=== PATIENT | female | born 1970 | race Caucasian/White ===

== ENCOUNTER 2016-11-13 15:36 | Emergency (ER) | payer MEDICAID ==
[~2016-11-13] VITALS: Ht 162.6 cm; Wt 90.0 kg
[~2016-11-13 15:36] MED LIST: ASPI1TAB30 PO; CYCL-319 PO; FIORICET PO; HYDR-3498 PO; HYDR-906 PO; NAPR-260 PO; NORT10CA2 PO; ONDA-43 PO
[2016-11-13 15:39] VITALS: Ht 162.6 cm; Wt 90.0 kg
[2016-11-13] MEDS ORDERED: KETOROLAC 30 MG INJ IM STA (16:49)
--- NOTE | 2016-11-13 17:18 | ERD ---
ER Documentation Chief Complaint Date/Time DATE: 11/13/16 TIME: 17:13 Chief Complaint RIGHT LOWER LEG PAIN NO RECENT INJURY. HPI Patient is a 45-year-old female who reports right knee pain for the last 3 years. She states it is from a fall injury 3 years ago at work. She states she has never seen anybody for this knee pain. She says it hurts when she walks on it but it is particularly painful when she drives and has to press the gas pedal. She denies any recurrent injury over the last 3 years. She denies any swelling or erythema. She denies any calf pain or rashes, bruising, or bleeding. She denies any other symptoms such as chest pain, shortness of breath , coughing, or congestion. She says that Tylenol and Motrin was helping although for some reason it has become more painful in the last week. She thinks that maybe it is because she has started in a new job which requires her to be on her feet into drive. The remainder of the systems are negative. ROS All systems reviewed and are negative except as per history of present illness. Medications Home Meds Active Scripts Hydrocodone/Acetaminophen ([place] 5-325 Tablet) 1 Each Tablet, 1 TAB PO Q6H Y for PAIN, #20 TAB Prov:INGA CARRASQUILLO PA-C 06/12/16 Aspirin/Acetaminophen/Caffeine (Excedrin Migraine Caplet) 1 Each Tablet, 1 EACH PO Q8, #30 TAB Prov:INGA CARRASQUILLO PA-C 06/12/16 Cyclobenzaprine Hcl* (Cyclobenzaprine Hcl*) 10 Mg Tablet, 10 MG PO TID, #15 TAB Prov:CHRISTIANO CODY PA-C 02/07/16 Naproxen* (Naprosyn*) 500 Mg Tablet, 500 MG PO BID Y for PAIN AND/OR INFLAMMATION, #30 TAB Prov:CHRISTIANO CODY PA-C 02/07/16 Hydrocodone Bit-Acetaminophen* ([place]*) 5-325 Mg Tab, 1 TAB PO Q6 Y for PAIN, # 7 TAB Prov:CHRISTIANO CDOY PA-C 02/07/16 Hydrocodone Bit-Acetaminophen* ([place]*) 5-325 Mg Tab, 1 TAB PO Q6 Y for PAIN, # 7 TAB Prov:ALISIA ESPINO PA-C 01/01/16 Ondansetron Hcl* (Zofran*) 4 Mg Tab, 4 MG PO Q4H Y for NAUSEA AND OR VOMITING, # 30 TAB Prov:ELLIOT HOOK 09/24/15 Acetamin/Butalbital/Caffeine* (Fioricet*) 1 Tab Tab, 1 TAB PO Q4H Y for PAIN LEVEL 1-5, #30 TAB Prov:ELLIOT HOOK 09/24/15 Nortriptyline Hcl* (Nortriptyline Hcl*) 10 Mg Capsule, 10 MG PO BID for 30 Days , CAP Prov:ELLIOT HOOK 09/24/15 Allergies Allergies: Coded Allergies: No Known Allergy (Unverified , 05/30/15) PMhx/Soc History of Surgery: Yes (CEASAREAN SECTION (2)) Anesthesia Reaction: No Hx Neurological Disorder: Yes (YEH, BRAIN LESION) Hx Respiratory Disorders: No Hx Cardiac Disorders: No Hx Psychiatric Problems: Yes (ANXIETY) Hx Miscellaneous Medical Probl: Yes (herniated discs in neck and back) Hx Alcohol Use: No Hx Substance Use: No Hx Tobacco Use: No Smoking Status: Never smoker Physical Exam Vitals Vital Signs Date Time Temp Pulse Resp B/P Pulse Ox O2 Delivery O2 Flow Rate FiO2 11/13/16 15:39 98.6 80 20 183/85 100 Physical Exam Const: [] Well-developed well-nourished female sitting in a wheelchair in no acute distress Head: Atraumatic normocephalic Resp: Clear to auscultation bilaterally Cardio: Regular rate and rhythm, no murmurs Abd: Soft, non tender, non distended. Normal bowel sounds Skin: No petechiae or rashes Ext: No cyanosis, or edema, tenderness to palpation of her entire right knee , no effusion noted, no bruising, no deformity, no laxity of the joint Neur: Awake and alert, oriented 3 with a GCS of 15 Psych: Normal Mood and Affect Results 24 hrs Current Medications Medications (Trade) Dose Ordered Sig/Tyrone Route PRN Reason Start Time Stop Time Status Last Admin Dose Admin Ketorolac Tromethamine (Toradol) 30 mg ONCE STAT IM 11/13/16 16:49 11/13/16 16:51 DC 11/13/16 17:32 Procedures/MDM Differential includes but is not limited to chronic knee pain, ligamentous injury, arthritis of the knee X-ray of the knee does not reveal any acute fracture or dislocation 1743: Patient stable for discharge home. She has been advised that with chronic knee pain for 3 years she needs to see an orthopedic doctor and probably get an outpatient MRI for probable ligamentous injury. Departure Diagnosis: Primary Impression: Right knee pain Chronicity: chronic Qualified Code: M25.561 - Chronic pain of right knee Condition: Good Patient Instructions: Knee Immobilizer, Knee Pain, Meniscus Injury (Possible) [facility]errals: [facility] Additional Instructions: Wear the knee immobilizer for comfort and bear weight as tolerated. It is important that you see the orthopedic doctor for further evaluation of your chronic knee pain. Return to the emergency department for any new or worsening symptoms. OUMOU WALLACE Nov 13, 2016 17:18
--- NOTE | 2016-11-13 17:30 | RADRPT ---
PROCEDURE: XR Knee. CLINICAL INDICATION: Pain TECHNIQUE: AP, lateral and oblique view of the right knee were obtained. The images reviewed on a PACS workstation. COMPARISON: None. FINDINGS: Three views of the right knee demonstrate no displaced fracture. No gross malalignment is seen. Th ere is no significant degenerate change. No patellofemoral disease is identified. Small joint effusi on is seen.. The bones normally mineralized. The soft tissues are unremarkable. IMPRESSION: No acute fracture dislocation RPTAT: HH .Bean Chahal MD, MD Date Time Electronically viewed and signed by .Bean Chahal MD, on 11/13/2016 17:30 .W/
[2016-11-13] MEDS ORDERED: HYDR-906 PO (17:49)
[2016-11-13] MEDS ORDERED: ETOD300C26 PO (17:49)
[2016-11-13] MEDS ORDERED: TRAM50TA2 PO (17:50)
== END 2016-11-13 18:07 | disposition home or self-care (01) ==
LOC: FTE 15:36
DX: M25.561 Pain in right knee (principal); Z79.82 Long term (current) use of aspirin
CPT/HCPCS: 29505; 73562; 96372; J1885; Z7502

== ENCOUNTER 2016-12-29 22:50 | Observation (INO) | payer MEDICAID ==
[~2016-12-29] VITALS: Ht 154.9 cm; Wt 96.4 kg
[~2016-12-29 22:50] MED LIST changes: +ETOD300C26 PO; +TRAM50TA2 PO
[2016-12-30 00:03] LABS: URINE BLOOD (Dip) POC Negative (NEGATIVE)
[2016-12-30] MEDS ORDERED: morphine 4 MG/ML VIAL IV STA (00:38)
[2016-12-30] MEDS ORDERED: ONDANSETRON 4 MG INJ IV STA (00:38)
[2016-12-30] MEDS ORDERED: SOD CHLORIDE 0.9% 1,000 ML IV STA (00:38)
[2016-12-30 01:14] LABS: ADD SCAN DIFF NO
[2016-12-30 01:17] LABS: BASOPHILS % 0.4 % (0.0-2.0); EOSINOPHILS # 0.1 10^3/ul (0.0-0.5); EOSINOPHILS % 1.3 % (0.0-7.0); HEMATOCRIT 37.5 % (37.0-47.0); HEMOGLOBIN 12.5 g/dl (12.0-16.0); LYMPHOCYTES # 2.8 10^3/ul (0.8-2.9); LYMPHOCYTES % 27.4 % (15.0-51.0); MEAN CORPUSCULAR HEMOGLOBIN 28.5 pg (29.0-33.0); MEAN CORPUSCULAR HGB CONC 33.3 g/dl (32.0-37.0); MEAN CORPUSCULAR VOLUME 85.4 fl (82.0-101.0); MONOCYTE # 0.8 10^3/ul (0.3-0.9); MONOCYTES % 7.6 % (0.0-11.0); NEUTROPHIL # 6.3 10^3/ul (1.6-7.5); NEUTROPHILS % 62.8 % (39.0-77.0); PLATELET COUNT 362 10^3/UL (140-415); RED BLOOD COUNT 4.39 10^6/ul (4.20-5.40); RED CELL DISTRIBUTION WIDTH 12.7 % (11.5-14.5)
[2016-12-30 01:31] LABS: ALBUMIN 3.9 g/dl (3.3-4.9); POTASSIUM 3.9 mmol/L (3.5-5.1)
[2016-12-30 01:33] LABS: CREATININE 0.73 mg/dl (0.44-1.00)
[2016-12-30 01:34] LABS: ALBUMIN/GLOBULIN RATIO 0.92; BILIRUBIN,INDIRECT 0.1 mg/dl (0-1.1); BILIRUBIN,TOTAL 0.1 mg/dl (0.2-1.3); CALCIUM 9.1 mg/dl (8.4-10.2); TOTAL PROTEIN 8.1 g/dl (6.1-8.1)
[2016-12-30 01:39] LABS: ADD UMIC YES; URINE BILIRUBIN (Dip) NEGATIVE (NEGATIVE); URINE BLOOD (Dip) NEGATIVE (NEGATIVE); URINE COLOR LT. YELLOW (YELLOW); URINE GLUCOSE (Dip) NEGATIVE (NEGATIVE); URINE KETONES (Dip) NEGATIVE (NEGATIVE); URINE LEUKOCYTE ESTERASE (Dip) TRACE (NEGATIVE); URINE NITRITE (Dip) NEGATIVE (NEGATIVE); URINE TOTAL PROTEIN (Dip) NEGATIVE (NEGATIVE); URINE UROBILINOGEN (Dip) 0.2 E.U./dL (0.1-1.0)
[2016-12-30 02:01] LABS: BACTERIA,URINE FEW; SQUAMOUS EPITHELIAL CELL,UR FEW; URINE RBCS 0-2 /HPF (0)
[2016-12-30] MEDS ORDERED: HYDROmorphONE 1 MG/ML SYG IV STA ×2 (02:03→05:25)
[2016-12-30] MEDS ORDERED: IBUPROFEN 200 MG TAB PO ONE (02:30)
--- NOTE | 2016-12-30 03:10 | RADRPT ---
PROCEDURE: CT ABDOMEN/PELVIS WITHOUT CONTRAST CLINICAL INDICATION: 46-year-old female with abdominal pain. TECHNIQUE: The study was performed utilizing a GE [employer] VCT 64-slice CT scanner. Direct axia l sections were obtained through the abdomen and pelvis without the use of intravenous contrast mate rial. Sagittal and coronal reformations were obtained. One or more of the following dose reduction t echniques were utilized: automated exposure control, adjustment of the mA and/or kV according to pat ient's size or use of iterative reconstruction technique. The images were reviewed on a PACS workst [employer]. CTD/vol = 23.3 mGy; Total Exam DLP = 1314.4 mGy-cm. COMPARISON: None. FINDINGS: There is small partially visualized calcification within the right infrahilar region presumably from prior granulomatous disease. There is trace bibasilar subsegmental atelectasis. There is no evide nce for significant pleural effusion. The liver has a normal size and contour without focal areas o f abnormal density. No intrahepatic nor extrahepatic biliary ductal dilatation is seen. The gallblad devendra demonstrates no wall thickening nor pericholecystic fluid. No biliary stones are evident. The pa ncreas is without areas of abnormal attenuation. The spleen is identified and has a normal size wit hout abnormal density. The adrenal glands are unremarkable. 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 There is compensatory hypertrophy of the right kidney. There are punctate nonobstructing mid right renal calculi. There is no evidence for hydroureteronephrosis. No hydroureteronephrosis nor nephroureterolithiasis is evident. The urinary bladder contains urine. There is a tiny umbilical hernia with an opening of 6 x 6 mm containing fat. There is mild retained stool most prominently within the ascending and transverse colon without obstruction. The appendix is visualized and is without abnormal thickening or surrounding inflammatory reaction. The uterus is anteflexed. There is no significant pelvic free fluid. The aortoiliac vessels are without aneurys mal dilatation. Mild degenerative changes are seen within the spine. IMPRESSION: 1. 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 2. Punctate nonobstructing mid right renal calculi. 3. Mild retained stool without obstruction. 4. No CT evidence for appendicitis. 5. Mild degenerative changes within the spine. .Alberto Guerra MD, MD Date Time Electronically viewed and signed by .Alberto Guerra MD, MD on 12/30/2016 03:09 .Frank
[2016-12-30] MEDS ORDERED: DICLOFENAC SODIUM 37.5 MG/ML VIAL IV STA (03:23)
[2016-12-30] MEDS ORDERED: DIAZEPAM 5 MG/ML SYG IV ONE (03:30)
[2016-12-30 05:00] VITALS: TEMP 98.2
--- NOTE | 2016-12-30 06:24 | ERA ---
ER Documentation Chief Complaint Date/Time DATE: 12/30/16 TIME: 06:17 Chief Complaint Flank pain, Back and neck pain. n/v and feels weak HPI This 46-year-old female presents to the ER with nausea vomiting pain, epigastric abdominal pain as well as headache and lower back pain. The headache is left-sided and is throbbing. He came on gradually has been present for 3 days. She also has generalized weakness. Denies any fever or chills. Denies pain on neck flexion. States that she has felt this way before when she was admitted to the hospital for spots on her brain. She is not sure what the spots were what was found. Reviewed the patient's EMR and see if she is admitted for similar symptoms and multiple lesions that were found on MRI. Oncologic workup was recommended the patient was discharged after headache dissipated. ROS All systems reviewed and are negative except as per history of present illness. Medications Home Meds Active Scripts Tramadol HCl (Tramadol HCl) 50 Mg Tablet, 50 MG PO Q6, #20 TAB 0 Refills Prov:OUMOU WALLACE 11/13/16 Etodolac (Etodolac) 300 Mg Capsule, 300 MG PO Q8 Y for PAIN, #30 CAP 0 Refills Prov:OUMOU WALLACE 11/13/16 Hydrocodone/Acetaminophen ([place] 5-325 Tablet) 1 Each Tablet, 1 TAB PO Q6H Y for PAIN, #20 TAB Prov:INGA CARRASQUILLO PA-C 06/12/16 Aspirin/Acetaminophen/Caffeine (Excedrin Migraine Caplet) 1 Each Tablet, 1 EACH PO Q8, #30 TAB Prov:INGA CARRASQUILLO PA-C 06/12/16 Cyclobenzaprine Hcl* (Cyclobenzaprine Hcl*) 10 Mg Tablet, 10 MG PO TID, #15 TAB Prov:CHRISTIANO CODY PA-C 02/07/16 Naproxen* (Naprosyn*) 500 Mg Tablet, 500 MG PO BID Y for PAIN AND/OR INFLAMMATION, #30 TAB Prov:CHRISTIANO CODY PA-C 02/07/16 Hydrocodone Bit-Acetaminophen* ([place]*) 5-325 Mg Tab, 1 TAB PO Q6 Y for PAIN, # 7 TAB Prov:CHRISTIANO CODY PA-C 02/07/16 Hydrocodone Bit-Acetaminophen* ([place]*) 5-325 Mg Tab, 1 TAB PO Q6 Y for PAIN, # 7 TAB Prov:ALISIA ESPINO PA-C 01/01/16 Ondansetron Hcl* (Zofran*) 4 Mg Tab, 4 MG PO Q4H Y for NAUSEA AND OR VOMITING, # 30 TAB Prov:REGELLIOT MEDELLIN 16 Acetamin/Butalbital/Caffeine* (Fioricet*) 1 Tab Tab, 1 TAB PO Q4H Y for PAIN LEVEL 1-5, #30 TAB Prov:REGVERENARELLIOT 16 Nortriptyline Hcl* (Nortriptyline Hcl*) 10 Mg Capsule, 10 MG PO BID for 30 Days , CAP Prov:REGELLIOT MEDELLIN 09/24/15 Allergies Allergies: Coded Allergies: No Known Allergy (Unverified , 05/30/15) PMhx/Soc History of Surgery: Yes (CEASAREAN SECTION (2)) Anesthesia Reaction: No Hx Neurological Disorder: Yes (YEH, BRAIN LESION) Hx Respiratory Disorders: No Hx Cardiac Disorders: No Hx Psychiatric Problems: Yes (ANXIETY) Hx Miscellaneous Medical Probl: Yes (herniated discs in neck and back) Hx Alcohol Use: No Hx Substance Use: No Hx Tobacco Use: No Smoking Status: Never smoker Physical Exam Vitals Vital Signs Date Time Temp Pulse Resp B/P Pulse Ox O2 Delivery O2 Flow Rate FiO2 12/30/16 05:00 98.2 65 16 140/84 100 Room Air 12/30/16 03:30 98.2 78 16 131/80 100 Room Air 12/30/16 02:10 71 17 121/62 98 Room Air 12/30/16 00:21 83 17 140/81 100 Room Air 12/29/16 23:18 97.7 89 20 142/83 96 Physical Exam Const: [] Head: Atraumatic Eyes: Normal Conjunctiva ENT: Normal External Ears, Nose and Mouth. Neck: Full range of motion..~ No meningismus. Resp: Clear to auscultation bilaterally Cardio: Regular rate and rhythm, no murmurs Abd: Soft, non tender, non distended. Normal bowel sounds Skin: No petechiae or rashes Back: No midline or flank tenderness Ext: No cyanosis, or edema Neur: Awake and alert Psych: Normal Mood and Affect Result Diagram: 12/30/16 0057 12/30/16 0057 Results 24 hrs Laboratory Tests Test 12/30/16 00:04 12/30/16 00:57 Bedside Urine pH (LAB) 6.5 Bedside Urine Protein (LAB) Negative Bedside Urine Glucose (UA) Negative Bedside Urine Ketones (LAB) Negative Bedside Urine Blood Negative Bedside Urine Nitrite (LAB) Negative Bedside Urine Leukocyte Esterase (L Trace White Blood Count 10.010^3/ul Red Blood Count 4.3910^6/ul Hemoglobin 12.5g/dl Hematocrit 37.5% Mean Corpuscular Volume 85.4fl Mean Corpuscular Hemoglobin 28.5pg Mean Corpuscular Hemoglobin Concent 33.3g/dl Red Cell Distribution Width 12.7% Platelet Count 09095^3/UL Mean Platelet Volume 10.0fl Neutrophils % 62.8% Lymphocytes % 27.4% Monocytes % 7.6% Eosinophils % 1.3% Basophils % 0.4% Nucleated Red Blood Cells % 0.0/100WBC Neutrophils # 6.310^3/ul Lymphocytes # 2.810^3/ul Monocytes # 0.810^3/ul Eosinophils # 0.110^3/ul Basophils # 0.010^3/ul Nucleated Red Blood Cells # 0.010^3/ul Urine Color LT. YELLOW Urine Clarity CLEAR Urine pH 6.0 Urine Specific Britton 1.015 Urine Ketones NEGATIVE Urine Nitrite NEGATIVE Urine Bilirubin NEGATIVE Urine Urobilinogen 0.2 E.U./dL Urine Leukocyte Esterase TRACE Urine Microscopic RBC 0-2/HPF Urine Microscopic WBC 0-2/HPF Urine Squamous Epithelial Cells FEW Urine Bacteria FEW Urine Hemoglobin NEGATIVE Urine Glucose NEGATIVE% Urine Total Protein NEGATIVE Sodium Level 142mmol/L Potassium Level 3.9mmol/L Chloride Level 104mmol/L Carbon Dioxide Level 28mmol/L Anion Gap 14 Blood Urea Nitrogen 13mg/dl Creatinine 0.73mg/dl Glucose Level 139mg/dl Calcium Level 9.1mg/dl Total Bilirubin 0.1mg/dl Direct Bilirubin 0.00mg/dl Indirect Bilirubin 0.1mg/dl Aspartate Amino Transf (AST/SGOT) 24IU/L Alanine Aminotransferase (ALT/SGPT) 28IU/L Alkaline Phosphatase 132IU/L Total Protein 8.1g/dl Albumin 3.9g/dl Globulin 4.20g/dl Albumin/Globulin Ratio 0.92 Lipase 82U/L Current Medications Medications (Trade) Dose Ordered Sig/Tyrone Route PRN Reason Start Time Stop Time Status Last Admin Dose Admin Sodium Chloride (NS) 1,000 ml @ 1,000 mls/hr Q1H STAT IV 12/30/16 00:38 12/30/16 01:37 DC 12/30/16 00:51 Morphine Sulfate (morphine) 4 mg ONCE STAT IV 12/30/16 00:38 12/30/16 00:40 DC 12/30/16 00:51 Ondansetron HCl (Zofran Inj) 4 mg ONCE STAT IV 12/30/16 00:38 12/30/16 00:40 DC 12/30/16 00:51 Hydromorphone HCl (Dilaudid) 0.5 mg ONCE STAT IV 12/30/16 02:03 12/30/16 02:04 DC 12/30/16 02:15 Ibuprofen (Motrin) 400 mg ONCE ONCE PO 12/30/16 02:30 12/30/16 02:31 DC 12/30/16 02:15 Diclofenac Sodium (Dyloject) 37.5 mg ONCE STAT IV 12/30/16 03:23 12/30/16 03:24 DC 12/30/16 03:30 Diazepam (Valium) 5 mg ONCE ONCE IV 12/30/16 03:30 12/30/16 03:31 DC 12/30/16 03:30 Hydromorphone HCl (Dilaudid) 1 mg ONCE STAT IV 12/30/16 05:25 12/30/16 05:27 DC 12/30/16 05:38 Procedures/MDM Headache with multiple brain lesions. Patient's abdominal pain may be secondary to constipation. However her headache was intractable. I have very low suspicion for meningitis as the patient is afebrile does not have meningismus, fever or elevated white count and had similar presentation with positive multiple brain lesions in the past. Also have low suspicion for subarachnoid hemorrhage as the headache is been coming on gradually getting worse and she has no history of recent trauma. She was hydrated with normal saline and her nausea was easily resolved with Zofran. However after multiple doses of pain medication including morphine, dilated jacked, Dilaudid patient still stated that she had almost the same headache. This point I see no other choice than to admit her for neurological workup to reevaluate her brain lesions and see if there causing any serious process. Vital signs are stable currently. Communicated with Dr. Spencer who will be admitting the patient to the medical surgical floor. CT abdomen pelvis interpretation: Atrophic kidney, constipation, no obstruction , no free air, no fat stranding, no fractures CT head interpretation: See hypointense lesion in the left temporal lobe without mass-effect, hemorrhage, midline shift. No fractures. Radiology read is still pending and will be followed by oncoming physician. Departure Diagnosis: Primary Impression: Intractable headache Additional Impressions: Nausea and vomiting Acute abdominal pain Condition: Stable CLYDE GARCIA DO December 30, 2016 06:24
--- NOTE | 2016-12-30 07:13 | RADRPT ---
PROCEDURE: CT BRAIN WITHOUT CONTRAST CLINICAL INDICATION: 46-year-old female with headaches and history of trauma. TECHNIQUE: The study was performed utilizing a [employer] VCT 64-slice CT scanner. Direct axia l sections were obtained from the foramen magnum to the vertex without the use of intravenous contra st material. Sagittal and coronal reformations were obtained. One or more the following dose reduct ion techniques were utilized: automated exposure control, adjustment of the mA and/or kV according t o patient's size or use of iterative reconstruction technique. The images were viewed on a PACS [employer]. CTD/vol = 42.8 mGy; Total Exam DLP = 720.2 mGy-cm. COMPARISON: CT brain June 12, 2016; CT brain January 01, 2016; CT brain September 23, 2015; MRI brain May 26, 2015. FINDINGS: There is a small focal calcific density within the left inferior frontal region on axial image 2-9 m easuring approximately 2 mm. There is a subtle ovoid calcific density measuring 3 mm within the rig ht superior frontal cortical region on axial image 2-24. There is a small focal calcific density wit hin the left anterior fornix region on axial image 2-15 measuring 2 mm. There is an additional ovoi d focus of calcific density within the left insular region on axial image 2-15 measuring 2 mm. Ther e is a subtle focus of calcific density within the left parietal parasagittal region on the axial im age seen better on sagittal image 602-49. The ventricles have a normal size, shape and position. T here is no evidence for mass effect or midline shift. There is no evidence for acute intra or extra- axial blood. The bony calvarium is intact. The partially visualized paranasal sinuses and mastoid a ir cells are without significant abnormal soft tissue. IMPRESSION: 1. There has been no marked interval change compared to the patient's prior CT scans. 2. Multiple small subtle calcific foci within the left inferior frontal, right superior frontal, le ft anterior fornix, left insular region and left parietal parasagittal locations most likely from pr ior cysticercosis infection. .Alberto Guerra MD, MD Date Time Electronically viewed and signed by .Alberto Guerra MD, on 12/30/2016 07:12 .M/
[2016-12-30] MEDS ORDERED: ACETAMINOPHEN 325 MG TAB PO PRN ×3 (08:00→12:30)
[2016-12-30] MEDS ORDERED: ACET/BUTAL/CAFF TAB PO PRN (08:00)
[2016-12-30] MEDS ORDERED: morphine 2 MG INJ IV PRN ×2 (08:00→12:30)
[2016-12-30] MEDS ORDERED: ONDANSETRON 4 MG INJ IV PRN ×3 (08:00→12:30)
[2016-12-30] MEDS ORDERED: NACL 0.9% 3 ML SYG IV SCH ×2 (08:00→12:30)
[2016-12-30] MEDS ORDERED: ALBUTEROL/IPRATROPIUM (NEB) 3 ML AMP HHN PRN ×2 (08:00→12:30)
[2016-12-30 10:00] VITALS: BP 141/70; PULSE 81; RESP 18; Ht 154.9 cm; Wt 96.4 kg
[2016-12-30] MEDS ORDERED: HYDROCODONE/APAP (5/325) TAB PO PRN (12:30)
[2016-12-30] MEDS ORDERED: DOCUSATE SODIUM 100 MG CAP PO PRN (12:30)
[2016-12-30] MEDS ORDERED: hydrALAzine 20 MG INJ IV PRN (12:30)
[2016-12-30] MEDS ORDERED: NITROGLYCERIN (SL) 0.4 MG TAB SL PRN (12:30)
[2016-12-30] MEDS ORDERED: LORAZEPAM 2 MG INJ IV PRN (12:30)
[2016-12-30] MEDS ORDERED: NA PHOSPHATE/BIPHOS 133 ML ENEMA PR PRN (12:30)
[2016-12-30] MEDS ORDERED: MAGNESIUM HYDROXIDE 30ML CUP PO PRN (12:30)
[2016-12-30] MEDS: CYCLOBENZAPRINE 10 MG TAB PO SCH ×3 (12:40→21:02)
[2016-12-30] MEDS: NORTRIPTYLINE 10 MG CAP PO SCH ×2 (12:40→20:59)
[2016-12-30] MEDS: SOD CHLORIDE 0.45% 1,000 ML IV SCH (12:42)
--- NOTE | 2016-12-30 14:13 | HP ---
DATE OF ADMISSION: 12/30/2016 CHIEF COMPLAINT: This is a 46-year-old female who comes in with the chief complaint of headache. HISTORY OF PRESENT ILLNESS: This is a 46-year-old female with past medical history of x2 , brain lesion in the past, anxiety, herniated disks in the neck and back, who has been having heada lexie symptoms going on for the last 3 days. She also had some vomiting symptoms, nonbilious, nonbloo dy. She says she had fever at home, she did ____ thermometer says it was 100.1. When she came in t [facility], she was afebrile; however, she did try to take tramadol and Tylenol at home that did not relie ve her symptoms. She says that she denies any photophobia; however, no upper or lower GI bleeding, no chest pain, no shortness of breath. 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 PAST MEDICAL HISTORY: As stated above. ALLERGIES: NO KNOWN DRUG ALLERGIES. MEDICATIONS AT HOME: 1. Per records, she is supposed to be taking Cyclobenzaprine 10 mg t.i.d. 2. Fioricet 1 tab q.4 hours p.r.n., although she says she is not taking this. 3. Etodolac 300 mg q.8 hours p.r.n. 4. [place] 5/325 q.6 p.r.n. 5. Naproxen 500 mg b.i.d. p.r.n. 6. Nortriptyline 10 mg b.i.d. 7. Tramadol 50 mg q.6 hours. 8. Zofran 4 mg q.4 p.r.n. PAST SURGICAL HISTORY: Again, she had x2 in the past. SOCIAL HISTORY: Negative for smoking, drinking, or IV drug abuse. PHYSICAL EXAMINATION: VITAL SIGNS: Today, T-max 98.2, pulse 65 to 89, respirations 16 to 20, blood pressure is 121 to 142 systolic over 62 to 83 diastolic, saturating at 96% on room air. GENERAL: The patient is lying in bed, alert, but in mild to moderate distress, complaining of a hea dache. HEENT: Pupils equal, round, react to light. Extraocular muscles intact. NECK: Supple, no thyromegaly. There is some tenderness to palpation on the posterior neck area. D ecreased range of motion secondary to pain. LUNGS: Clear to auscultation bilaterally. CARDIOVASCULAR: S1, S2 heard. No rubs or gallops. ABDOMEN: Soft, nontender, nondistended. Normal bowel sounds. No rebound, guarding. MUSCULOSKELETAL: No lower extremity edema bilaterally. NEUROLOGIC: No focal deficits. LABORATORIES: CBC is normal. Comprehensive metabolic panel is essentially normal. Lipase is stephanie l. So she had a CT abdomen and pelvis today in the ER that shows left-sided renal agenesis with com pensatory hypertrophy of the right kidney. There is a punctate nonobstructing mid right renal calcu li but no appendicitis, mild retained stool. No obstruction. Head CT was performed. No marked int erval changes compared to the patient's prior CT scan. There are multiple small subtle calcific foc i within the left inferior frontal, right superior frontal, left anterior fornix, left insular regio n and left parietal parasagittal locations most likely from prior cysticercosis infection. ASSESSMENT AND PLAN: A 46-year-old female coming in with headache symptoms and vomiting symptoms, r ule out migraine versus possible musculoskeletal pain from prior neck disk bulge, and low back pain disk disease. 1. Headache. Again, will admit the patient to med/surg floor for now and put her back on the Brenden cet and [place] p.r.n., put her back on amitriptyline. It is unclear if she has been taking these med icines at home. Again, her last admission was well over a year ago here and she says that due to in surance changes, she has not been able to take all of those medicines at home. Will consider an MRI of the head and neck as well, given the neck disease. She did have subjective fevers at home, but n o fevers here, so I have a less thought process concerning a meningitis at this point. If she does spike fever or any changes in her white count, will consider doing LP at that time, but again lower on the differential at this point. 2. Simple urinary tract infection. Add Cesar ortega.r.n. 3. Gastrointestinal prophylaxis. PPI. We will also check a TSH and lipid panel. Get PT consult a s well. 4. History of brain lesion. Again, will get the MRI of the brain to further investigate. Dictated By: PAIGE ARIZA Conf#: [id number] DID#: [id number]
[2016-12-30] MEDS: traMADol 50 MG TAB PO SCH ×2 (17:16→23:51)
[2016-12-30] MEDS: CIPROFLOXACIN 250 MG TAB GTB SCH (17:16)
--- NOTE | 2016-12-30 17:45 | RADRPT ---
PROCEDURE: MRI soft tissue neck without contrast CLINICAL INDICATION: Neck pain, history of neck disk disease TECHNIQUE: Multiplanar MRI of the soft tissues of the neck was performed on a 3.0 T scanner with th e following sequences obtained: T1-weighted, T2-weighted, STIR. COMPARISON: None available FINDINGS: No soft tissue edema, focal fluid collection, focal mass lesion or enlarged lymph node meeting size criteria or abnormal appearing lymph node is identified throughout the soft tissues of the neck. Th e pharynx, and larynx are unremarkable. Thyroid gland and rest of visceral space structures appear unremarkable. The parapharyngeal and retropharyngeal spaces are clear. The parotid and submandibul ar glands are unremarkable. The imaged campus administrator spaces are symmetric. Imaged skull base is gross ly intact. Perivertebral space is unremarkable. Visualized orbits appear unremarkable. Oral cavit y structures are unremarkable. Mastoids and imaged paranasal sinuses are grossly clear. There is c ervical spondylosis, not well evaluated on this examination. No high-grade central canal stenosis o r foraminal narrowing is seen. IMPRESSION: 1. No acute abnormality, mass or lymphadenopathy identified throughout the soft tissues of the neck . 2. Cervical spondylosis, not well assessed on this examination; if desired, further evaluation coul d be performed with dedicated MRI of the cervical spine. RPTAT: HH .Enoc Rojas MD, MD Date Time Electronically viewed and signed by .Enoc Rojas MD, MD on 12/30/2016 17:45 .O/
--- NOTE | 2016-12-30 17:54 | RADRPT ---
PROCEDURE: MRI Brain without contrast. CLINICAL INDICATION: Headaches, history of trauma TECHNIQUE: Multiplanar MRI of the brain without contrast was performed on a 3.0 T scanner with the following sequences obtained: T1-weighted, T2-weighted/FLAIR, diffusion weighted (with ADC map), GR E. COMPARISON: CT brain 12/30/2016, MRI brain 05/26/2015 FINDINGS: No acute/recent ischemic infarction or intracranial hemorrhage / blood degradation products are iden tified. No extra-axial fluid collection is seen. There is no mass effect. No midline shift is identified. The ventricles and sulci are within normal limits for size and configuration. There is several scattered minimal areas of increased T2-weighted FLAIR signal intensity in the deep white matter which are nonspecific, but not significantly change since the prior MRI. Previously-d escribed subtle parenchymal calcifications best seen on the CT are not well visualized on this MRI. Flow voids are identified in the proximal intracranial arteries and dural sinuses suggesting patency . The mastoid air cells and paranasal sinuses are grossly clear. IMPRESSION: 1. No evidence of acute intracranial pathology. 2. Minimal nonspecific white matter changes, which may reflect chronic small vessel ischemic change s or possibly sequela of complicated migraines, not significantly change since the prior MRI from . 3. Previous described subtle parenchymal calcifications best seen on CT not well visualized on this MRI; see CT report for details. RPTAT: HH .Enoc Rojas MD, MD Date Time Electronically viewed and signed by .Enoc Rojas MD, MD on 12/30/2016 17:53 .O/
[2016-12-30] MEDS: ACET/BUTAL/CAFF TAB PO PRN (21:00)
[2016-12-30 21:19] VITALS: BP 133/69; RESP 18
[2016-12-31] MEDS: SOD CHLORIDE 0.45% 1,000 ML IV SCH ×2 (01:27→10:38)
[2016-12-31] MEDS: PANTOPRAZOLE (EC) 40 MG TAB PO SCH (05:16)
[2016-12-31] MEDS: CIPROFLOXACIN 250 MG TAB GTB SCH ×2 (05:16→18:04)
[2016-12-31] MEDS: traMADol 50 MG TAB PO SCH ×2 (05:18→12:00)
[2016-12-31 06:02] LABS: ADD SCAN DIFF NO
[2016-12-31 06:11] LABS: BASOPHILS % 0.5 % (0.0-2.0); EOSINOPHILS # 0.2 10^3/ul (0.0-0.5); HEMATOCRIT 36.2 % (37.0-47.0); HEMOGLOBIN 11.9 g/dl (12.0-16.0); LYMPHOCYTES # 2.8 10^3/ul (0.8-2.9); LYMPHOCYTES % 34.7 % (15.0-51.0); MEAN CORPUSCULAR HEMOGLOBIN 28.6 pg (29.0-33.0); MEAN CORPUSCULAR HGB CONC 32.9 g/dl (32.0-37.0); MONOCYTE # 0.6 10^3/ul (0.3-0.9); MONOCYTES % 6.8 % (0.0-11.0); NEUTROPHIL # 4.5 10^3/ul (1.6-7.5); NEUTROPHILS % 55.8 % (39.0-77.0); PLATELET COUNT 346 10^3/UL (140-415); RED BLOOD COUNT 4.16 10^6/ul (4.20-5.40); RED CELL DISTRIBUTION WIDTH 12.6 % (11.5-14.5); WHITE BLOOD COUNT 8.1 10^3/ul (4.8-10.8)
[2016-12-31 06:53] LABS: CHOL/HDL RATIO 3.3 RATIO
[2016-12-31 07:47] VITALS: BP 136/80; RESP 18
[2016-12-31 07:47] LABS: THYROID STIMULATING HORMONE 1.62 MIU/L (0.465-4.680)
[2016-12-31 08:58] LABS: ALBUMIN 3.4 g/dl (3.3-4.9); ALBUMIN/GLOBULIN RATIO 1.03; CALCIUM 9.2 mg/dl (8.4-10.2); CREATININE 0.74 mg/dl (0.44-1.00); PHOSPHORUS 4.8 mg/dl (2.5-4.9); POTASSIUM 4.6 mmol/L (3.5-5.1); TOTAL PROTEIN 6.7 g/dl (6.1-8.1)
[2016-12-31] MEDS: NORTRIPTYLINE 10 MG CAP PO SCH ×2 (09:07→20:29)
[2016-12-31] MEDS: CYCLOBENZAPRINE 10 MG TAB PO SCH ×3 (09:07→20:29)
[2016-12-31] MEDS ORDERED: traMADol 50 MG TAB PO PRN (13:00)
--- NOTE | 2016-12-31 13:24 | PN ---
Date/Time of Note Date/Time of Note DATE: 12/31/16 TIME: 13:22 Assessment/Plan VTE Prophylaxis VTE Prophylaxis Intervention: SCD's Lines/Catheters IV Catheter Type (from Nrsg): Peripheral IV Assessment/Plan Assessment/Plan Intractable headache, CT negative, MRI showed atherosclerotic Vascular disease in brain neck pain UTI Plan: MRI C spine today cipro for UTI Floricef for migraine headache Change tramadol to prn Bp stable possible d/c home tomorrow if MRI negative Subjective 24 Hr Interval Summary Free Text/Dictation c/o neck pain with headache Exam/Review of Systems Vital Signs Vitals Vital Signs Date Time Temp Pulse Resp B/P Pulse Ox O2 Delivery O2 Flow Rate FiO2 12/31/16 07:47 97.8 84 18 136/80 98 12/30/16 10:00 Room Air Intake and Output 12/30/16 12/30/16 12/31/16 15:00 23:00 07:00 Intake Total 1305 ml 600 ml Balance 1305 ml 600 ml Exam GENERAL: The patient is lying in bed, alert, but in mild to moderate distress, complaining of a headache. HEENT: Pupils equal, round, react to light. Extraocular muscles intact. NECK: Supple, no thyromegaly. There is some tenderness to palpation on the posterior neck area. Decreased range of motion secondary to pain. LUNGS: Clear to auscultation bilaterally. CARDIOVASCULAR: S1, S2 heard. No rubs or gallops. ABDOMEN: Soft, nontender, nondistended. Normal bowel sounds. No rebound, guarding. MUSCULOSKELETAL: No lower extremity edema bilaterally. NEUROLOGIC: No focal deficits. Results Result Diagram: 12/31/16 0525 12/31/16 0525 Results 24 hrs Laboratory Tests Test 12/31/16 05:25 White Blood Count 8.1 Red Blood Count 4.16 L Hemoglobin 11.9 L Hematocrit 36.2 L Mean Corpuscular Volume 87.0 Mean Corpuscular Hemoglobin 28.6 L Mean Corpuscular Hemoglobin Concent 32.9 Red Cell Distribution Width 12.6 Platelet Count 346 Mean Platelet Volume 10.0 Neutrophils % 55.8 Lymphocytes % 34.7 Monocytes % 6.8 Eosinophils % 2.0 Basophils % 0.5 Nucleated Red Blood Cells % 0.0 Neutrophils # 4.5 Lymphocytes # 2.8 Monocytes # 0.6 Eosinophils # 0.2 Basophils # 0.0 Nucleated Red Blood Cells # 0.0 Sodium Level 137 Potassium Level 4.6 Chloride Level 105 Carbon Dioxide Level 25 Anion Gap 12 Blood Urea Nitrogen 14 Creatinine 0.74 Glucose Level 110 Hemoglobin A1c 6.1 H Calcium Level 9.2 Phosphorus Level 4.8 Magnesium Level 2.0 Total Bilirubin 0.0 L Direct Bilirubin 0.00 Indirect Bilirubin 0.0 Aspartate Amino Transf (AST/SGOT) 32 Alanine Aminotransferase (ALT/SGPT) 44 Alkaline Phosphatase 123 H Total Protein 6.7 # Albumin 3.4 Globulin 3.30 H Albumin/Globulin Ratio 1.03 Triglycerides Level 131 Cholesterol Level 149 LDL Cholesterol, Calculated 78 HDL Cholesterol 45 Cholesterol/HDL Ratio 3.3 Thyroid Stimulating Hormone (TSH) 1.620 Medications Medications Current Medications Cyclobenzaprine HCl (Flexeril) 10 mg TID PO Last administered on 12/31/16 12: 21; Admin Dose 10 MG; Start 12/30/16 at 09:00 Nortriptyline HCl (Aventyl) 10 mg BID PO Last administered on 12/31/16 09:07; Admin Dose 10 MG; Start 12/30/16 at 09:00 Ondansetron HCl (Zofran Inj) 4 mg Q6H PRN IV NAUSEA AND/OR VOMITING; Start at 12:30 Acetaminophen (Tylenol Tab) 650 mg Q6H PRN PO PAIN LEVEL 1-3 OR FEVER; Start at 12:30 Acetaminophen/ Hydrocodone Bitart ([place] (5/325)) 1 tab Q6H PRN PO MODERATE PAIN LEVEL 4-6; Start 12/30/16 at 12:30 Morphine Sulfate (morphine) 2 mg Q4H PRN IV SEVERE PAIN LEVEL 7-10; Start 12/30 at 12:30 Docusate Sodium (Colace) 100 mg Q12H PRN PO CONSTIPATION; Start 12/30/16 at 12: 30 Magnesium Hydroxide (Milk Of Mag) 30 ml DAILY PRN PO CONSTIPATION; Start at 12:30 Sodium Biphosphate/ Sodium Phosphate (Fleet Enema) 133 ml DAILY PRN MS CONSTIPATION; Start 12/30/16 at 12:30 Pantoprazole 40 mg 40 mg DAILY@06 PO Last administered on 12/31/16 05:16; Admin Dose 40 MG; Start 12/31/16 at 06:00 Sodium Chloride (1/2 NS) 1,000 ml @ 75 mls/hr [id number] IV Last administered on 12/31/16 10:38; Admin Dose 75 MLS/HR; Start 12/30/16 at 12:07 Lorazepam (Ativan) 0.5 mg Q6H PRN IV ANXIETY; Start 12/30/16 at 12:30 Hydralazine HCl (Apresoline) 10 mg Q6H PRN IV ELEVATED BLOOD PRESSURE; Start at 12:30 Nitroglycerin (Nitroglycerin (Sl Tab) 0.4 Mg) 1 tab Q5M PRN SL ANGINA; Start at 12:30 Ciprofloxacin (Cipro) 250 mg BID@06,18 GTB Last administered on 12/31/16 05:16 ; Admin Dose 250 MG; Start 12/30/16 at 18:00; Stop 01/02/17 at 19:55 Acetaminophen/ Butalbital/ Caffeine (Fioricet) 1 tab Q4H PRN PO PAIN Last administered on 12/30/16 21:00; Admin Dose 1 TAB; Start 12/30/16 at 13:00 Tramadol HCl (Ultram) 50 mg Q6H PRN PO moderate pain ; Start 12/31/16 at 13:00 KHADIJAH BRADLEY MD December 31, 2016 13:24
--- NOTE | 2016-12-31 16:34 | RADRPT ---
PROCEDURE: MR Cervical Spine. CLINICAL INDICATION: Neck pain TECHNIQUE: An MRI of the cervical spine was performed on a high-definition scanner utilizing the f ollowing sequences: Sagittal and axial T1 T1 weighted, sagittal axial T2 weighted, sagittal STIR, an d axial 2D MERGE. COMPARISON: No prior studies are available for comparison. FINDINGS: The cervical lordosis is straightened. There is maintenance of the normal vertebral body heights. T he marrow signal throughout the visualized cervical spine is homogeneous without focal abnormality. The craniocervical and cervical medullary junctions are unremarkable. The cervical cord is normal in caliber and signal intensity. The paravertebral soft tissues are unremarkable. Congenital narrowing of the central canal is seen. Occiput-C2: The anatomic relationships are normal without canal stenosis. C2-3: No significant disk bulge or foraminal stenosis is seen. Very mild congenital central canal s tenosis is seen. C3-4: No significant disk bulge or left foraminal stenosis is seen. Mild congenital central canal s tenosis is seen. Mild right foraminal stenosis is seen secondary to an uncovertebral osteophyte. C4-5: The intervertebral disc is normal without foraminal narrowing.Mild congenital central canal st enosis is seen. C5-6: The intervertebral disc is normal without foraminal narrowing. Borderline congenital central c anal stenosis is seen. C6-7: The intervertebral disc is normal without foraminal narrowing. C7-T1: The intervertebral disc is normal without foraminal or canal narrowing. IMPRESSION: 1. No MRI evidence of acute pathology in the cervical spine. 2. 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 3. Straightening of the cervical lordosis. RPTAT: HPNM Physician Romario Date Time Electronically viewed and signed by Physician Romario on 12/31/2016 16:34 /
[2016-12-31 19:33] VITALS: BP 138/79; RESP 20
[2016-12-31] MEDS: ACET/BUTAL/CAFF TAB PO PRN (20:29)
[2017-01-01] MEDS: SOD CHLORIDE 0.45% 1,000 ML IV SCH ×2 (04:07→09:16)
[2017-01-01] MEDS: CIPROFLOXACIN 250 MG TAB GTB SCH (06:23)
[2017-01-01] MEDS: PANTOPRAZOLE (EC) 40 MG TAB PO SCH (06:23)
[2017-01-01 07:06] LABS: CALCIUM 9.3 mg/dl (8.4-10.2); CREATININE 0.7 mg/dl (0.44-1.00); POTASSIUM 3.9 mmol/L (3.5-5.1)
[2017-01-01 07:54] VITALS: BP 159/85; RESP 20
[2017-01-01] MEDS: NORTRIPTYLINE 10 MG CAP PO SCH (09:14)
[2017-01-01] MEDS: CYCLOBENZAPRINE 10 MG TAB PO SCH ×2 (09:15→15:16)
--- NOTE | 2017-01-01 12:02 | PDOCDIS ---
Discharge Instructions CONDITION Patient Condition: Good HOME CARE INSTRUCTIONS: Special Diet: regular ACTIVITY: Activity Restrictions: Slowly Increase Activity Rest between Activity Avoid heavy lifting Avoid Heavy Housework FOLLOW UP/APPOINTMENTS Appointments Follow up with her own PMD through HMO insurance in 1-2 week after discharge KHADIJAH BRADLEY MD January 01, 2017 12:02
[2017-01-01] MEDS ORDERED: CIPR-193 GTB (12:04)
[2017-01-01] MEDS ORDERED: CYCL-319 PO (12:04)
[2017-01-01] MEDS ORDERED: NAPR-260 PO (12:04)
[2017-01-01] MEDS ORDERED: FIORICET PO (12:04)
== END 2017-01-01 16:40 | disposition home or self-care (01) ==
LOC: E/R 22:50 → MS2 12-30 07:38
PROVIDERS: ADMIT Internal Medicine; ATTEND Internal Medicine
DX: R51 Headache (principal); N39.0 Urinary tract infection, site not specified; F41.9 Anxiety disorder, unspecified; Z79.82 Long term (current) use of aspirin
CPT/HCPCS: 36415; 70450; 70540; 70551; 72141; 74176; 80048; 80053; 80061; 81001; 83036; 83690; 83735; 84100; 84439; 84443; 85025; 96374; 96375; 96376; 97161; J1170; J2270; J2405; J3360; J7030; Z7500; Z7502; Z7610; 81003; G0378

== ENCOUNTER 2018-06-29 15:10 | Emergency (ER) | END 2018-06-29 20:57 | disposition home or self-care (01) ==